=== PATIENT | female | born 1970 | race American Indian/Alaskan Native ===

== ENCOUNTER 2017-03-09 08:28 | Emergency (ER) | payer MEDICAID, OTHER ==
[2017-03-09] MEDS ORDERED: TORADOL IM ONE (10:23)
[2017-03-09] MEDS ORDERED: FLEXERIL PO ONE (10:23)
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
[2017-03-09 12:00] VITALS: BP 110/60
== END 2017-03-09 11:30 | disposition home or self-care (01) ==
LOC: ED 08:28
DX: M25.561 Pain in right knee (principal); V49.59XA Passenger injured in collision with other motor vehicles in traffic accident, initial encounter; Y93.9 Activity, unspecified; Y92.9 Unspecified place or not applicable; Y99.9 Unspecified external cause status
CPT/HCPCS: 96372; 99283; J1885

== ENCOUNTER 2018-01-23 19:38 | Emergency (ER) | payer SELFPAY ==
[2018-01-23 19:54] VITALS: BP 126/93
[2018-01-23 20:24] LABS: Basophils % (Auto) 0.5 % (0.0-1.8); Eosinophils # (Auto) 0.2 K/mm3 (0.0-0.4); Eosinophils % (Auto) 3.6 % (0.0-4.3); Hematocrit 38.1 % (30.3-42.9); Hemoglobin 12.2 gm/dl (10.1-14.3); Lymphocytes # (Auto) 1.8 K/mm3 (1.2-5.4); Lymphocytes % (Auto) 39.4 % (13.4-35.0); Mean Corpuscular HGB Conc 32 % (30-34); Mean Corpuscular Hemoglobin 27 pg (28-32); Mean Corpuscular Volume 84 fl (79-97); Monocytes # (Auto) 0.5 K/mm3 (0.0-0.8); Monocytes % (Auto) 9.7 % (0.0-7.3); Platelet Count 240 K/mm3 (140-440); Red Blood Count 4.55 M/mm3 (3.65-5.03); Red Cell Distribution Width 13.3 % (13.2-15.2)
[2018-01-23 20:26] LABS: Bilirubin,Urine NEG (Negative); Blood,Urine SM (Negative); Color,Urine Yellow (Yellow); Protein,Urine <15 mg/dL mg/dL (Negative); Urobilinogen,Urine < 2.0 mg/dL (<2.0)
[2018-01-23 20:37] LABS: Alanine Aminotransferase 10 units/L (7-56); Albumin 3.8 g/dL (3.9-5); BUN/Creatinine Ratio 16; Blood Urea Nitrogen 13 mg/dL (7-17); Calcium 8.2 mg/dL (8.4-10.2); Hemolysis Index 5; Lipase 20 units/L (13-60)
== END 2018-01-23 21:41 | disposition left against medical advice (07) ==
LOC: ED 19:38
DX: R10.2 Pelvic and perineal pain (principal); Z53.21 Procedure and treatment not carried out due to patient leaving prior to being seen by health care provider
CPT/HCPCS: 36415; 80053; 81001; 83690; 84703; 85025

== ENCOUNTER 2018-12-24 08:41 | Emergency (ER) | payer MEDICAID ==
[2018-12-24 09:38] LABS: Bacteria,Urine 1+ /HPF (Negative); Bilirubin,Urine NEG (Negative); Blood,Urine SM (Negative); Color,Urine Yellow (Yellow); Mucus,Urine FEW /HPF; Protein,Urine <15 mg/dL mg/dL (Negative); Urobilinogen,Urine < 2.0 mg/dL (<2.0)
[2018-12-24] MEDS ORDERED: MORPHINE IV ONE (10:29)
[2018-12-24] MEDS ORDERED: ZOFRAN IV ONE (10:29)
[2018-12-24 10:55] LABS: Basophils % (Auto) 0.4 % (0.0-1.8); Eosinophils # (Auto) 0.2 K/mm3 (0.0-0.4); Eosinophils % (Auto) 2.6 % (0.0-4.3); Hematocrit 40.8 % (30.3-42.9); Hemoglobin 13.4 gm/dl (10.1-14.3); Lymphocytes # (Auto) 1.3 K/mm3 (1.2-5.4); Lymphocytes % (Auto) 21.3 % (13.4-35.0); Mean Corpuscular HGB Conc 33 % (30-34); Mean Corpuscular Volume 84 fl (79-97); Monocytes # (Auto) 0.4 K/mm3 (0.0-0.8); Monocytes % (Auto) 6.9 % (0.0-7.3); Platelet Count 178 K/mm3 (140-440); Red Blood Count 4.85 M/mm3 (3.65-5.03); Red Cell Distribution Width 13.2 % (13.2-15.2)
--- NOTE | 2018-12-24 11:03 | Cat Scan Report ---
CT ABDOMEN PELVIS WITHOUT CONTRAST: HISTORY: Right lower quadrant abdominal pain. COMPARISON: none. TECHNIQUE: Helical CT in 1.25mm intervals without IV contrast. Sagittal and coronal reconstructions. FINDINGS: Lung bases: Normal heart size. The lung bases are adequately aerated, however, multiple small intraparenchymal cysts are noted in the lower lung zones. These cysts range from a few millimeters in diameter to 1.5 cm in diameter and had a thin well-defined wall. No pleural fluid collection or pneumothorax Liver: Normal. Biliary system: Normal. Pancreas: Normal. Spleen: Normal. Kidneys/ureters/bladder: Normal. Adrenal glands: Normal. Aorta: Normal. Intestines: There is moderate stool throughout the length of the colon. This exam is slightly limited without oral and IV contrast. There is no evidence for obstruction or focal inflammation. Appendix: I believe I see the appendix in the right side of the pelvis on images [id number], series 3. Low suspicion for acute appendicitis. Pelvic viscera: Normal. Ascites: None. Adenopathy: None. Musculoskeletal: Normal. IMPRESSION: No acute process is identified in the abdomen or pelvis. No clear explanation for right lower quadrant pain other than constipation. Multiple small cysts are identified at the lung bases. Considerations include lymphangiomyomatosis, tuberous sclerosis, eosinophilic granuloma, among other etiologies.
[2018-12-24 11:14] LABS: Alanine Aminotransferase 8 units/L (7-56); BUN/Creatinine Ratio 17; Blood Urea Nitrogen 10 mg/dL (7-17); Calcium 8.8 mg/dL (8.4-10.2); Hemolysis Index 7
--- NOTE | 2018-12-24 11:24 | Emergency Department Report ---
ED General Adult HPI - General Chief complaint: Abdominal Pain Stated complaint: ABD PAIN Time Seen by Provider: 12/24/18 09:58 Source: patient Mode of arrival: Ambulatory Limitations: No Limitations - History of Present Illness Initial comments: The patient presents to the emergency department with a chief complaint of diffuse abdominal pain and vaginal discharge to started 2 days ago after having intercourse. Patient also complains of some nausea but denies chest pain, status post, or headache. -: Gradual Severity scale (0 -10): 10 Quality: aching Consistency: constant Improves with: none Worsens with: none Associated Symptoms: denies other symptoms Treatments Prior to Arrival: none - Related Data Previous Rx's Medication Instructions Recorded Last Taken Type Cyclobenzaprine [Flexeril 10 MG 10 mg PO QHS #24 tablet 03/09/17 Unknown Rx TAB] Ibuprofen [Motrin] 800 mg PO Q8HR PRN #30 tablet 03/09/17 Unknown Rx metroNIDAZOLE [Flagyl TAB] 500 mg PO Q12HR #14 tab 12/24/18 Unknown Rx Allergies Allergy/AdvReac Type Severity Reaction Status Date / Time No Known Allergies Allergy Verified 12/24/18 08:42 ED Review of Systems ROS: Stated complaint: ABD PAIN Other details as noted in HPI Constitutional: denies: chills, fever Eyes: denies: eye pain, eye discharge, vision change ENT: denies: ear pain, throat pain Respiratory: denies: cough, shortness of breath, wheezing Cardiovascular: denies: chest pain, palpitations Endocrine: no symptoms reported Gastrointestinal: abdominal pain. denies: nausea, diarrhea Genitourinary: denies: urgency, dysuria, discharge Musculoskeletal: denies: back pain, joint swelling, arthralgia Skin: denies: rash, lesions Neurological: denies: headache, weakness, paresthesias Psychiatric: denies: anxiety, depression Hematological/Lymphatic: denies: easy bleeding, easy bruising ED Past Medical Hx - Past Medical History Previous Medical History?: Yes Additional medical history: Review smoker-chronic pelvic pain. PID - Surgical History Past Surgical History?: Yes Additional Surgical History: tubal ligation - Social History Smoking Status: Current Every Day Smoker - Medications Home Medications: Home Medications Medication Instructions Recorded Confirmed Last Taken Type Cyclobenzaprine [Flexeril 10 MG 10 mg PO QHS #24 tablet 03/09/17 Unknown Rx TAB] Ibuprofen [Motrin] 800 mg PO Q8HR PRN #30 tablet 03/09/17 Unknown Rx metroNIDAZOLE [Flagyl TAB] 500 mg PO Q12HR #14 tab 12/24/18 Unknown Rx ED Physical Exam - General Limitations: No Limitations General appearance: alert, in no apparent distress - Head Head exam: Present: atraumatic, normocephalic - Eye Eye exam: Present: normal appearance, PERRL, EOMI - ENT ENT exam: Present: mucous membranes moist - Neck Neck exam: Present: normal inspection - Respiratory Respiratory exam: Present: normal lung sounds bilaterally. Absent: respiratory distress, wheezes, rales, rhonchi - Cardiovascular Cardiovascular Exam: Present: regular rate, normal rhythm. Absent: systolic murmur, diastolic murmur, rubs, gallop - GI/Abdominal GI/Abdominal exam: Present: soft, tenderness (diffusely tender to palpation), normal bowel sounds. Absent: distended - Rectal Rectal exam: Present: deferred - External exam: Present: normal external exam, other ( exam chaperoned by nurse Carlos Damon) Speculum exam: Present: vaginal discharge, cervical discharge. Absent: vaginal bleeding, foreign body, tissue, laceration Bi-manual exam: Present: normal bi-manual exam. Absent: adnexal tenderness, adnexal mass - Extremities Exam Extremities exam: Present: normal inspection - Back Exam Back exam: Present: normal inspection - Neurological Exam Neurological exam: Present: alert, oriented X3, CN II-XII intact. Absent: motor sensory deficit - Psychiatric Psychiatric exam: Present: normal affect, normal mood - Skin Skin exam: Present: warm, dry, intact, normal color. Absent: rash ED Course Vital Signs 12/24/18 12/24/18 12/24/18 08:44 08:45 09:52 Temperature 97.4 F L Pulse Rate 91 H Respiratory 13 18 Rate Blood Pressure 104/75 O2 Sat by Pulse 98 Oximetry ED Medical Decision Making - Lab Data Result diagrams: 12/24/18 10:41 12/24/18 10:41 Lab Results 12/24/18 12/24/18 12/24/18 Range/Units 09:14 10:41 10:41 WBC 5.9 (4.5-11.0) K/mm3 RBC 4.85 (3.65-5.03) M/mm3 Hgb 13.4 (10.1-14.3) gm/dl Hct 40.8 (30.3-42.9) % MCV 84 (79-97) fl MCH 28 (28-32) pg MCHC 33 (30-34) % RDW 13.2 (13.2-15.2) % Plt Count 178 (140-440) K/mm3 Lymph % (Auto) 21.3 (13.4-35.0) % [place] % (Auto) 6.9 (0.0-7.3) % Eos % (Auto) 2.6 (0.0-4.3) % Baso % (Auto) 0.4 (0.0-1.8) % Lymph # 1.3 (1.2-5.4) K/mm3 Burnett # 0.4 (0.0-0.8) K/mm3 Eos # 0.2 (0.0-0.4) K/mm3 Baso # 0.0 (0.0-0.1) K/mm3 Seg Neutrophils % 68.8 (40.0-70.0) % Seg Neutrophils # 4.1 (1.8-7.7) K/mm3 Sodium 139 (137-145) mmol/L Potassium 4.2 (3.6-5.0) mmol/L Chloride 102.7 (98-107) mmol/L Carbon Dioxide 26 (22-30) mmol/L Anion Gap 15 mmol/L BUN 10 (7-17) mg/dL Creatinine 0.6 L (0.7-1.2) mg/dL Estimated GFR > 60 ml/min BUN/Creatinine Ratio 17 % Glucose 97 (65-100) mg/dL Calcium 8.8 (8.4-10.2) mg/dL Total Bilirubin 0.40 (0.1-1.2) mg/dL AST 13 (5-40) units/L ALT 8 (7-56) units/L Alkaline Phosphatase 53 (35-129) units/L Total Protein 6.8 (6.3-8.2) g/dL Albumin 4.0 (3.9-5) g/dL Albumin/Globulin Ratio 1.4 % Lipase 49 (13-60) units/L Urine Color Yellow (Yellow) Urine Turbidity Clear (Clear) Urine pH 5.0 (5.0-7.0) Ur Specific [place] 1.017 (1.003-1.030) Urine Protein <15 mg/dl (Negative) mg/dL Urine Glucose (UA) Neg (Negative) mg/dL Urine Ketones Neg (Negative) mg/dL Urine Blood Sm (Negative) Urine Nitrite Neg (Negative) Urine Bilirubin Neg (Negative) Urine Urobilinogen < 2.0 (<2.0) mg/dL Ur Leukocyte Esterase Neg (Negative) Urine WBC (Auto) 1.0 (0.0-6.0) /HPF Urine RBC (Auto) 5.0 (0.0-6.0) /HPF U Epithel Cells (Auto) 3.0 (0-13.0) /HPF Urine Bacteria (Auto) 1+ (Negative) /HPF Urine Mucus Few /HPF - Radiology Data Radiology results: report reviewed - Medical Decision Making Discussed CT results with patient and need for close follow-up Critical care attestation.: If time is entered above; I have spent that time in minutes in the direct care of this critically ill patient, excluding procedure time. ED Disposition Clinical Impression: Abdominal pain, Bacterial vaginosis, Vaginal discharge Disposition: DC-01 TO HOME OR SELFCARE Is pt being admited?: No Does the pt Need Aspirin: No Condition: Stable Instructions: Abdominal Pain (ED), Bacterial Vaginosis (ED) Additional Instructions: return if worse Prescriptions: metroNIDAZOLE [Flagyl TAB] 500 mg PO Q12HR #14 tab Referrals: JOSE STANLEY MD [Primary Care Provider] - 3-5 Days Forms: STI Treatment and Prevention
[2018-12-24] MEDS ORDERED: ZOFRAN ODT PO ONE (13:48)
[2018-12-24] MEDS ORDERED: ZITHROMAX PO ONE (13:48)
[2018-12-24] MEDS ORDERED: ROCEPHIN IM ONE (13:48)
[2018-12-24] MEDS ORDERED: XYLOCAINE 1% MPF 5 mL INFILTRATI ONE (13:48)
[2018-12-24 14:48] VITALS: BP 93/59
== END 2018-12-24 14:47 | disposition home or self-care (01) ==
LOC: ED 08:41
DX: N76.0 Acute vaginitis (principal); B96.89 Other specified bacterial agents as the cause of diseases classified elsewhere; R10.84 Generalized abdominal pain; F17.200 Nicotine dependence, unspecified, uncomplicated; Z98.51 Tubal ligation status; Z79.899 Other long term (current) drug therapy
CPT/HCPCS: 36415; 74176; 80053; 81001; 83690; 85025; 87210; 87591; 96372; 96374; 96375; 99285; J0696; J2270; J2405; Q0162

== ENCOUNTER 2019-01-20 11:18 | Emergency (ER) | payer MEDICAID ==
--- NOTE | 2019-01-20 11:31 | Emergency Department Report ---
Blank Doc - Documentation Documentation: This is a 48-year-old female that presents with pelvic pain and vaginal discha rge. Patient stated that she has been going to OBGYN and has been taking antibiotics with no relief. This initial assessment/diagnostic orders/clinical plan/treatment(s) is/are subject to change based on patient's health status, clinical progression and re- assessment by fellow clinical providers in the ED. Further treatment and workup at subsequent clinical providers discretion. Patient/guardians urged not to elope from the ED as their condition may be serious if not clinically assessed and managed. Initial orders include: 1- Patient sent to [facility] for further evaluation and treatment 2- wet prep/GC 3- UA
[2019-01-20 15:27] VITALS: BP 101/76
[2019-01-20 15:48] LABS: Basophils # (Auto) 0.1 K/mm3 (0.0-0.1); Basophils % (Auto) 1.1 % (0.0-1.8); Eosinophils # (Auto) 0.1 K/mm3 (0.0-0.4); Hematocrit 38.5 % (30.3-42.9); Hemoglobin 12.9 gm/dl (10.1-14.3); Lymphocytes # (Auto) 1.6 K/mm3 (1.2-5.4); Lymphocytes % (Auto) 34.7 % (13.4-35.0); Mean Corpuscular HGB Conc 34 % (30-34); Mean Corpuscular Volume 85 fl (79-97); Monocytes # (Auto) 0.4 K/mm3 (0.0-0.8); Monocytes % (Auto) 8.4 % (0.0-7.3); Platelet Count 202 K/mm3 (140-440); Red Blood Count 4.54 M/mm3 (3.65-5.03); Red Cell Distribution Width 13.6 % (13.2-15.2)
[2019-01-20 16:13] LABS: Alanine Aminotransferase 11 units/L (7-56); BUN/Creatinine Ratio 17; Blood Urea Nitrogen 12 mg/dL (7-17); Calcium 8.8 mg/dL (8.4-10.2); Hemolysis Index 16
[2019-01-20] MEDS ORDERED: ZOFRAN ODT PO ONE (16:32)
[2019-01-20] MEDS ORDERED: NORCO 10/325 PO ONE (16:32)
[2019-01-20] MEDS ORDERED: ROCEPHIN IM ONE (16:32)
[2019-01-20] MEDS ORDERED: XYLOCAINE 1% MPF 5 mL INFILTRATI ONE (16:32)
[2019-01-20] MEDS ORDERED: ZITHROMAX PO ONE (16:33)
--- NOTE | 2019-01-20 17:22 | Emergency Department Report ---
<TJ BLAIR - Last Filed: 01/21/19 04:56> ED General Adult HPI - General Chief complaint: Abdominal Pain Stated complaint: VAGINAL PAIN Time Seen by Provider: 01/20/19 11:28 - Related Data Previous Rx's Medication Instructions Recorded Last Taken Type Cyclobenzaprine [Flexeril 10 MG 10 mg PO QHS #24 tablet 03/09/17 Unknown Rx TAB] Ibuprofen [Motrin 800 MG tab] 800 mg PO Q8HR PRN #30 tablet 03/09/17 Unknown Rx traMADol [Ultram 50 MG tab] 50 mg PO Q6HR PRN #20 tablet 12/24/18 Unknown Rx Acetaminophen/Codeine [Tylenol 1 tab PO Q6H PRN #10 tab 01/20/19 Unknown Rx /Codeine # 3 tab] Allergies Allergy/AdvReac Type Severity Reaction Status Date / Time No Known Allergies Allergy Verified 12/24/18 08:42 ED Past Medical Hx - Medications Home Medications: Home Medications Medication Instructions Recorded Confirmed Last Taken Type Cyclobenzaprine [Flexeril 10 MG 10 mg PO QHS #24 tablet 03/09/17 Unknown Rx TAB] Ibuprofen [Motrin 800 MG tab] 800 mg PO Q8HR PRN #30 tablet 03/09/17 Unknown Rx traMADol [Ultram 50 MG tab] 50 mg PO Q6HR PRN #20 tablet 12/24/18 Unknown Rx Acetaminophen/Codeine [Tylenol 1 tab PO Q6H PRN #10 tab 01/20/19 Unknown Rx /Codeine # 3 tab] ED Physical Exam - External exam: Present: other ED Medical Decision Making - Lab Data Result diagrams: 01/20/19 15:28 01/20/19 15:28 Lab Results 01/20/19 01/20/19 01/20/19 Range/Units 15:25 15:28 15:28 WBC 4.5 (4.5-11.0) K/mm3 RBC 4.54 (3.65-5.03) M/mm3 Hgb 12.9 (10.1-14.3) gm/dl Hct 38.5 (30.3-42.9) % MCV 85 (79-97) fl MCH 29 (28-32) pg MCHC 34 (30-34) % RDW 13.6 (13.2-15.2) % Plt Count 202 (140-440) K/mm3 Lymph % (Auto) 34.7 (13.4-35.0) % [place] % (Auto) 8.4 H (0.0-7.3) % Eos % (Auto) 3.0 (0.0-4.3) % Baso % (Auto) 1.1 (0.0-1.8) % Lymph # 1.6 (1.2-5.4) K/mm3 Swain # 0.4 (0.0-0.8) K/mm3 Eos # 0.1 (0.0-0.4) K/mm3 Baso # 0.1 (0.0-0.1) K/mm3 Seg Neutrophils % 52.8 (40.0-70.0) % Seg Neutrophils # 2.4 (1.8-7.7) K/mm3 Sodium 139 (137-145) mmol/L Potassium 3.7 (3.6-5.0) mmol/L Chloride 102.0 (98-107) mmol/L Carbon Dioxide 28 (22-30) mmol/L Anion Gap 13 mmol/L BUN 12 (7-17) mg/dL Creatinine 0.7 (0.7-1.2) mg/dL Estimated GFR > 60 ml/min BUN/Creatinine Ratio 17 % Glucose 52 L (65-100) mg/dL Calcium 8.8 (8.4-10.2) mg/dL Total Bilirubin 0.30 (0.1-1.2) mg/dL AST 17 (5-40) units/L ALT 11 (7-56) units/L Alkaline Phosphatase 55 (35-129) units/L Total Protein 6.3 (6.3-8.2) g/dL Albumin 4.0 (3.9-5) g/dL Albumin/Globulin Ratio 1.7 % Urine Color Yellow (Yellow) Urine Turbidity Clear (Clear) Urine pH 6.0 (5.0-7.0) Ur Specific [place] 1.010 (1.003-1.030) Urine Protein <15 mg/dl (Negative) mg/dL Urine Glucose (UA) Neg (Negative) mg/dL Urine Ketones Neg (Negative) mg/dL Urine Blood Mod (Negative) Urine Nitrite Neg (Negative) Urine Bilirubin Neg (Negative) Urine Urobilinogen < 2.0 (<2.0) mg/dL Ur Leukocyte Esterase Sm (Negative) Urine WBC (Auto) 3.0 (0.0-6.0) /HPF Urine RBC (Auto) 4.0 (0.0-6.0) /HPF U Epithel Cells (Auto) 1.0 (0-13.0) /HPF Urine Mucus Few /HPF Urine HCG, Qual Negative (Negative) Vital Signs 01/20/19 01/20/19 01/20/19 11:33 15:25 16:40 Temperature 98.4 F 98.2 F Pulse Rate 91 H 88 Respiratory 16 17 18 Rate Blood Pressure 96/72 Blood Pressure 101/76 [Right] O2 Sat by Pulse 100 98 Oximetry 01/20/19 17:25 Temperature Pulse Rate Respiratory 18 Rate Blood Pressure Blood Pressure [Right] O2 Sat by Pulse Oximetry - Radiology Data Radiology results: report reviewed PROCEDURE: US PELVIC COMPLETE TECHNIQUE: Real-time sonography was performed of the pelvis endovaginally and images are submitted for interpretation HISTORY: Tubo-ovarian abscess COMPARISONS: None FINDINGS: The uterus appears normal measuring 9.3 x 5.8 x 7.1 cm. The endometrial stripe appears normal measuring 8 mm. The right ovary appears normal measuring 2.6 x 1.6 x 3.5 cm. The left ovary appears normal measuring 2.9 x 1.8 x 2.3 cm. Color Doppler evaluation of the ovaries shows flow bilaterally. There is no free pelvic fluid. There are no abnormal adnexal lesions. IMPRESSION: Normal pelvic ultrasound This document is electronically signed by Desi Arnold MD., January 20 2019 07:41:33 PM ET - Medical Decision Making s/o from Dr. Solis labs with mildly low glucose advised pt to drink a soda/juice, rest of the labs WNL, wet prep is normal, pelvic US with no acute process, pt swabbed and given tx for G/C, advised pt to check back with medical records in one week for results, discussed US results with pt and advised pt to follow up with her [employer] for further evaluation and management and to rule out endometriosis or any other [employer]IL[employer] causes for pelvic pain. Will also have pt see a PCP in the next 2- 3 days. Pt states she has been taking 800 mg ibuprofen and has not helped with the pain, will give pt short course of tylenol 3. Advised pt to return to the ED for any new or worsening symptoms. ED Disposition Clinical Impression: Pelvic pain Disposition: DC-01 TO HOME OR SELFCARE Is pt being admited?: No Does the pt Need Aspirin: No Condition: Stable Instructions: Chronic Pelvic Pain in Women (ED) Additional Instructions: please follow up with your [employer]TER in the next 2-3 days to discuss endometriosis or other diagnosis. Follow up with your primary care doctor in the next 2-3 days. Return to the emergency room for any new or worsening symptoms. May use tylenol with codeine for severe pain and ibuprofen for moderate pain. Prescriptions: Acetaminophen/Codeine [Tylenol /Codeine # 3 tab] 1 tab PO Q6H PRN #10 tab PRN Reason: Pain , Severe (7-10) Referrals: YOSSI TELLO MD [Primary Care Provider] - 2-3 Days [facility] [Provider Group] - 2-3 Days Forms: Work/School Release Form(ED) Time of Disposition: 20:41 Print Language: BERMUDIAN <JANY SOLIS - Last Filed: 01/21/19 09:20> ED General Adult HPI - General Source: patient Mode of arrival: Ambulatory Limitations: No Limitations - History of Present Illness Initial comments: Patient presents to emergency department with chief complaint of pelvic pain with vaginal discharge for the last 2-3 weeks. Patient also complains of lower abdominal pain. Patient recently finished a course of antibiotics for STD exposure. -: Gradual Location: abdomen Severity scale (0 -10): 8 Quality: aching Consistency: constant Improves with: none Worsens with: none Associated Symptoms: denies other symptoms Treatments Prior to Arrival: none ED Review of Systems ROS: Stated complaint: VAGINAL PAIN Other details as noted in HPI Constitutional: denies: chills, fever Eyes: denies: eye pain, eye discharge, vision change ENT: denies: ear pain, throat pain Respiratory: denies: cough, shortness of breath, wheezing Cardiovascular: denies: chest pain, palpitations Endocrine: no symptoms reported Gastrointestinal: denies: abdominal pain, nausea, diarrhea Genitourinary: discharge. denies: urgency, dysuria Musculoskeletal: denies: back pain, joint swelling, arthralgia Skin: denies: rash, lesions Neurological: denies: headache, weakness, paresthesias Psychiatric: denies: anxiety, depression Hematological/Lymphatic: denies: easy bleeding, easy bruising ED Past Medical Hx - Past Medical History Previous Medical History?: Yes Additional medical history: Review smoker-chronic pelvic pain. PID - Surgical History Past Surgical History?: Yes Additional Surgical History: tubal ligation - Social History Smoking Status: Never Smoker Substance Use Type: None ED Physical Exam - General Limitations: No Limitations General appearance: alert, in no apparent distress - Head Head exam: Present: atraumatic, normocephalic - Eye Eye exam: Present: normal appearance, PERRL, EOMI - ENT ENT exam: Present: mucous membranes moist - Neck Neck exam: Present: normal inspection - Respiratory Respiratory exam: Present: normal lung sounds bilaterally. Absent: respiratory distress, wheezes, rales, rhonchi - Cardiovascular Cardiovascular Exam: Present: regular rate, normal rhythm. Absent: systolic murmur, diastolic murmur, rubs, gallop - GI/Abdominal GI/Abdominal exam: Present: soft, normal bowel sounds. Absent: distended, tenderness - External exam: Present: normal external exam, other (chaperoned by paramedics Steel) Speculum exam: Present: vaginal discharge Bi-manual exam: Present: cervical motion tendernes - Back Exam Back exam: Present: normal inspection - Neurological Exam Neurological exam: Present: alert, oriented X3, CN II-XII intact. Absent: motor sensory deficit - Psychiatric Psychiatric exam: Present: normal affect, normal mood - Skin Skin exam: Present: warm, dry, intact, normal color. Absent: rash ED Course Vital Signs 01/20/19 01/20/19 01/20/19 11:33 15:25 16:40 Temperature 98.4 F 98.2 F Pulse Rate 91 H 88 Respiratory 16 17 18 Rate Blood Pressure 96/72 Blood Pressure 101/76 [Right] O2 Sat by Pulse 100 98 Oximetry 01/20/19 17:25 Temperature Pulse Rate Respiratory 18 Rate Blood Pressure Blood Pressure [Right] O2 Sat by Pulse Oximetry ED Medical Decision Making - Lab Data Result diagrams: 01/20/19 15:28 01/20/19 15:28 - Radiology Data Radiology results: report reviewed Critical care attestation.: If time is entered above; I have spent that time in minutes in the direct care of this critically ill patient, excluding procedure time.
[2019-01-20 19:08] LABS: Bilirubin,Urine NEG (Negative); Blood,Urine MOD (Negative); Color,Urine Yellow (Yellow); Mucus,Urine FEW /HPF; Protein,Urine <15 mg/dL mg/dL (Negative); Urobilinogen,Urine < 2.0 mg/dL (<2.0)
[2019-01-20 19:10] LABS: HCG Qualitative,Urine Negative (Negative)
--- NOTE | 2019-01-20 19:43 | Ultrasound Report ---
PROCEDURE: US PELVIC COMPLETE TECHNIQUE: Real-time sonography was performed of the pelvis endovaginally and images are submitted f or interpretation HISTORY: Tubo-ovarian abscess COMPARISONS: None FINDINGS: The uterus appears normal measuring 9.3 x 5.8 x 7.1 cm. The endometrial stripe appears normal measuri ng 8 mm. The right ovary appears normal measuring 2.6 x 1.6 x 3.5 cm. The left ovary appears normal measuring 2.9 x 1.8 x 2.3 cm. Color Doppler evaluation of the ovaries shows flow bilaterally. There is no free pelvic fluid. There are no abnormal adnexal lesions. IMPRESSION: Normal pelvic ultrasound This document is electronically signed by Desi Arnold MD., January 20 2019 07:41:33 PM ET
--- NOTE | 2019-01-20 19:43 | Ultrasound Report ---
PROCEDURE: US PELVIC COMPLETE TECHNIQUE: Real-time sonography was performed of the pelvis transabdominally and images are submitte d for interpretation HISTORY: Tubo-ovarian abscess COMPARISONS: None FINDINGS: The uterus appears normal measuring 9.3 x 5.8 x 7.1 cm. The endometrial stripe appears normal measuri ng 8 mm. The right ovary appears normal measuring 2.6 x 1.6 x 3.5 cm. The left ovary appears normal measuring 2.9 x 1.8 x 2.3 cm. Color Doppler evaluation of the ovaries shows flow bilaterally. There is no free pelvic fluid. There are no abnormal adnexal lesions IMPRESSION: Normal pelvic ultrasound This document is electronically signed by Desi Arnold MD., January 20 2019 07:40:50 PM ET
== END 2019-01-20 20:46 | disposition home or self-care (01) ==
LOC: ED 11:18
DX: R10.2 Pelvic and perineal pain (principal); N89.8 Other specified noninflammatory disorders of vagina; R10.30 Lower abdominal pain, unspecified; Z98.51 Tubal ligation status
CPT/HCPCS: 36415; 76830; 76856; 80053; 81001; 81025; 85025; 87210; 87591; 96372; 99284; J0696; Q0162

== ENCOUNTER 2019-02-11 08:37 | Emergency (ER) | payer MEDICAID ==
[2019-02-11 09:18] LABS: Bilirubin,Urine NEG (Negative); Blood,Urine SM (Negative); Color,Urine Yellow (Yellow); Mucus,Urine 1+ /HPF; Protein,Urine <15 mg/dL mg/dL (Negative); Urobilinogen,Urine < 2.0 mg/dL (<2.0)
--- NOTE | 2019-02-11 10:04 | Emergency Department Report ---
ED Dysuria HPI - HPI Chief Complaint: Urogenital-Female Stated Complaint: PELVIC PAIN Time Seen by Provider: 02/11/19 09:59 Location of Discomfort: Other Severity: Mild Symptoms: Dysuria: No, Frequency: No, Suprapubic Pain: No, Flank Pain: No, Fever: No, Hematuria: No, Abdominal Pain: No, Previous UTI's: No Other History: Patient has been seen here numerous times in the past for the same symptoms. She's had ultrasounds and CT scans. She has had numerous urinalysis and STD workups. Patient has been referred to [facility] but states that she has a scheduled biopsy but she is out of her pain medicine so she came to the ER. ED Review of Systems ROS: Stated complaint: PELVIC PAIN Other details as noted in HPI Comment: All other systems reviewed and negative ED Past Medical Hx - Past Medical History Previous Medical History?: Yes Additional medical history: Review smoker-chronic pelvic pain. PID - Surgical History Past Surgical History?: Yes Additional Surgical History: tubal ligation. D&C x3 - Social History Smoking Status: Current Every Day Smoker Substance Use Type: None - Medications Home Medications: Home Medications Medication Instructions Recorded Confirmed Last Taken Type Cyclobenzaprine [Flexeril 10 MG 10 mg PO QHS #24 tablet 03/09/17 Unknown Rx TAB] Ibuprofen [Motrin 800 MG tab] 800 mg PO Q8HR PRN #30 tablet 03/09/17 Unknown Rx traMADol [Ultram 50 MG tab] 50 mg PO Q6HR PRN #20 tablet 12/24/18 Unknown Rx Acetaminophen/Codeine [Tylenol 1 tab PO Q6H PRN #10 tab 01/20/19 Unknown Rx /Codeine # 3 tab] Dysuria Exam - Exam General: Vital signs noted. No distress. Alert and acting appropriately. Exam: Yes Moist Mucous Membranes, No CVA Tenderness, No Abdominal Tenderness, No Rigidity or Guarding Labs: Lab Results 02/11/19 Range/Units 08:58 Urine Color Yellow (Yellow) Urine Turbidity Clear (Clear) Urine pH 6.0 (5.0-7.0) Ur Specific [place] 1.015 (1.003-1.030) Urine Protein <15 mg/dl (Negative) mg/dL Urine Glucose (UA) Neg (Negative) mg/dL Urine Ketones Neg (Negative) mg/dL Urine Blood Sm (Negative) Urine Nitrite Neg (Negative) Urine Bilirubin Neg (Negative) Urine Urobilinogen < 2.0 (<2.0) mg/dL Ur Leukocyte Esterase Neg (Negative) Urine WBC (Auto) 1.0 (0.0-6.0) /HPF Urine RBC (Auto) 3.0 (0.0-6.0) /HPF U Epithel Cells (Auto) 2.0 (0-13.0) /HPF Urine Mucus 1+ /HPF ED Course Vital Signs 02/11/19 08:47 Temperature 98.3 F Pulse Rate 96 H Respiratory 18 Rate Blood Pressure 97/68 [Right] O2 Sat by Pulse 97 Oximetry ED Medical Decision Making - Medical Decision Making Review of the EMR, long discussion with the patient. I explained to her that the emergency room is not which she needs for her current issues. She has a pending uterine biopsy. She has had an extensive ER workup on numerous occasions. I also informed her that we could not keep prescribing her tramadol [place] for her pain. She is going to walk over to her MANAGER DRILLING's office to see if her uterine biopsy could be worked in sooner. Patient seems to be overly concerned about this issue. I'm not sure she was not educated prior ORIF she just is fearful of potentially a cancer diagnosis. We had a long discussion she's been around a verbalized concerns. And she will go see her MANAGER DRILL[facility] now. Patient being discharged from the ER with follow-up arrangements. Critical care attestation.: If time is entered above; I have spent that time in minutes in the direct care of this critically ill patient, excluding procedure time. ED Disposition Clinical Impression: Pelvic pain Disposition: TO HOME OR SELFCARE Is pt being admited?: No Does the pt Need Aspirin: No Condition: Stable Additional Instructions: ALL STD TEST NORMAL ULTRASOUND NORMAL CT NORMAL YOU NEED TO SEE OBGYN TO EVALUATE THE CAUSE OF THIS PAIN NO ANTIBIOTICS ARE INDICATED MOTRIN OR TYLENOL CAN BE USED FOR PAIN Referrals: SIMONA PEDERSEN [Other] - 3-5 Days SIMONA MCLAUGHLIN MD [Staff Physician] - 3-5 Days Time of Disposition: 10:03
[2019-02-11 10:30] VITALS: BP 100/71
== END 2019-02-11 10:29 | disposition home or self-care (01) ==
LOC: ED 08:37
DX: R10.2 Pelvic and perineal pain (principal); Z98.51 Tubal ligation status; F17.200 Nicotine dependence, unspecified, uncomplicated
CPT/HCPCS: 81001; 99282

== ENCOUNTER 2020-01-30 11:39 | Emergency (ER) | payer MEDICAID ==
[2020-01-30] MEDS ORDERED: traMADol 50 MG TAB PO ONE (12:43)
[2020-01-30 13:05] LABS: HCG Qualitative,Urine Negative (Negative)
[2020-01-30 13:06] LABS: Bilirubin,Urine NEG (Negative); Blood,Urine SM (Negative); Color,Urine Straw (Yellow); Protein,Urine <15 mg/dL mg/dL (Negative); Urobilinogen,Urine < 2.0 mg/dL (<2.0); WBC,Urine < 1.0 /HPF (0.0-6.0)
[2020-01-30] MEDS ORDERED: AZITHROMYCIN 250 MG TAB PO ONE (13:23)
[2020-01-30] MEDS ORDERED: LIDOCAINE-MPF (1%) 10 MG/1 ML VIAL 5 ML INFILTRATI ONE (13:23)
--- NOTE | 2020-01-30 13:23 | Emergency Department Report ---
ED Female HPI - General Chief complaint: Abdominal Pain Stated complaint: LOWER ABD PAIN Time Seen by Provider: 01/30/20 12:16 Source: patient Mode of arrival: Ambulatory Limitations: No Limitations - History of Present Illness Initial comments: This is a 49-year-old female presents the ED complaining of suprapubic pain with mild no odor vaginal discharge that began 2 days ago after her cycle ended. Patient denies dysuria, urinary frequency, fever, chills, nausea vomiting or diarrhea. Patient states that she has one partner but thinks she might have some vaginal irritation going on. She denies any vaginal lesions, vaginal pain. Patient states pain is localized to her mid pubic pelvis region. MD Complaint: vaginal discharge, pelvic pain Location: suprapubic Radiation: non-radiating Severity: mild Severity scale (0 -10): 5 Improves with: none Worsens with: none Are you Now?: No - Related Data Previous Rx's Medication Instructions Recorded Last Taken Type Cyclobenzaprine [Flexeril 10 MG 10 mg PO QHS #24 tablet 03/09/17 Unknown Rx TAB] traMADoL [Ultram 50 MG tab] 50 mg PO Q6HR PRN #20 tablet 12/24/18 Unknown Rx Acetaminophen/Codeine [Tylenol 1 tab PO Q6H PRN #10 tab 01/20/19 Unknown Rx /Codeine # 3 tab] Fluconazole [Diflucan TAB] 150 mg PO ONCE #1 tablet 01/30/20 Unknown Rx Ibuprofen [Motrin 800 MG tab] 800 mg PO Q8HR PRN #30 tablet 01/30/20 Unknown Rx Allergies Allergy/AdvReac Type Severity Reaction Status Date / Time No Known Allergies Allergy Verified 01/30/20 11:45 ED Review of Systems ROS: Stated complaint: LOWER ABD PAIN Other details as noted in HPI Comment: All other systems reviewed and negative ED Past Medical Hx - Past Medical History Additional medical history: Review smoker-chronic pelvic pain. PID - Surgical History Additional Surgical History: tubal ligation. D&C x3 - Social History Smoking Status: Never Smoker Substance Use Type: None - Medications Home Medications: Home Medications Medication Instructions Recorded Confirmed Last Taken Type Cyclobenzaprine [Flexeril 10 MG 10 mg PO QHS #24 tablet 03/09/17 Unknown Rx TAB] traMADoL [Ultram 50 MG tab] 50 mg PO Q6HR PRN #20 tablet 12/24/18 Unknown Rx Acetaminophen/Codeine [Tylenol 1 tab PO Q6H PRN #10 tab 01/20/19 Unknown Rx /Codeine # 3 tab] Fluconazole [Diflucan TAB] 150 mg PO ONCE #1 tablet 01/30/20 Unknown Rx Ibuprofen [Motrin 800 MG tab] 800 mg PO Q8HR PRN #30 tablet 01/30/20 Unknown Rx ED Physical Exam - General Limitations: No Limitations General appearance: alert, in no apparent distress - Head Head exam: Present: atraumatic, normocephalic - Eye Eye exam: Present: normal appearance - ENT ENT exam: Present: mucous membranes moist - Neck Neck exam: Present: normal inspection - Respiratory Respiratory exam: Present: normal lung sounds bilaterally. Absent: respiratory distress - Cardiovascular Cardiovascular Exam: Present: regular rate, normal rhythm. Absent: systolic murmur, diastolic murmur, rubs, gallop - GI/Abdominal GI/Abdominal exam: Present: soft, normal bowel sounds. Absent: distended, tenderness, guarding, rebound - External exam: Present: normal external exam. Absent: lesions, bleeding Speculum exam: Present: vaginal discharge (mild,yellowish,clear, no odor, no lesions). Absent: cervical discharge, vaginal bleeding, foreign body Bi-manual exam: Present: normal bi-manual exam. Absent: cervical motion tendernes - Extremities Exam Extremities exam: Present: normal inspection - Back Exam Back exam: Present: normal inspection - Neurological Exam Neurological exam: Present: alert, oriented X3 - Psychiatric Psychiatric exam: Present: normal affect, normal mood - Skin Skin exam: Present: warm, dry, intact, normal color. Absent: rash ED Course Vital Signs 01/30/20 01/30/20 01/30/20 11:45 12:49 15:09 Temperature 97.9 F 98.9 F Pulse Rate 75 80 Respiratory 20 16 16 Rate Blood Pressure 101/67 Blood Pressure 120/70 [Left] O2 Sat by Pulse 97 Oximetry ED Medical Decision Making - Lab Data Laboratory Last Values Urine Color Straw (Yellow) 01/30/20 12:57 Urine Turbidity Clear (Clear) 01/30/20 12:57 Urine pH 6.0 (5.0-7.0) 01/30/20 12:57 Ur Specific [place] 1.014 (1.003-1.030) 01/30/20 12:57 Urine Protein <15 mg/dl mg/dL (Negative) 01/30/20 12:57 Urine Glucose (UA) Neg mg/dL (Negative) 01/30/20 12:57 Urine Ketones Neg mg/dL (Negative) 01/30/20 12:57 Urine Blood Sm (Negative) 01/30/20 12:57 Urine Nitrite Neg (Negative) 01/30/20 12:57 Ur Reducing Substances Not Reportable 01/30/20 12:57 Urine Bilirubin Neg (Negative) 01/30/20 12:57 Urine Ictotest Not Reportable 01/30/20 12:57 Urine Urobilinogen < 2.0 mg/dL (<2.0) 01/30/20 12:57 Ur Leukocyte Esterase Neg (Negative) 01/30/20 12:57 Urine WBC (Auto) < 1.0 /HPF (0.0-6.0) 01/30/20 12:57 Urine RBC (Auto) 4.0 /HPF (0.0-6.0) 01/30/20 12:57 U Epithel Cells (Auto) 4.0 /HPF (0-13.0) 01/30/20 12:57 Urine HCG, Qual Negative (Negative) 01/30/20 12:57 - Medical Decision Making This 49-year-old female who presents the ED with pelvic pain. Urinalysis and urine test negative. Patient treated prophylaxis for STD. Discussed with patient to follow-up with health department for STD screening. Discussed results with the patient. Patient was in no acute or respiratory distress. She understand instructions and states will follow-up. Critical care attestation.: If time is entered above; I have spent that time in minutes in the direct care of this critically ill patient, excluding procedure time. ED Disposition Clinical Impression: Vaginitis, Possible exposure to STD Disposition: DC-01 TO HOME OR SELFCARE Is pt being admited?: No Does the pt Need Aspirin: No Condition: Stable Instructions: Sexually Transmitted Diseases (ED), Safe Sex (ED), Vaginitis (ED), Abdominal Pain (ED) Additional Instructions: Make sure to follow up with the primary care physician as discussed. Take all your medications as you've been prescribed. If you have any worsening symptoms or develop new symptoms please return to ED immediately. Prescriptions: Fluconazole [Diflucan TAB] 150 mg PO ONCE #1 tablet Ibuprofen [Motrin 800 MG tab] 800 mg PO Q8HR PRN #30 tablet PRN Reason: Pain Referrals: SIMONA PEDERSEN [Other] - 3-5 Days [facility] [Outside] - 3-[address] [facility] [Outside] - 3-[address] [facility] [Outside] - 3-5 Days Forms: Accompanied Note, Work/School Release Form(ED) Time of Disposition: 14:15
[2020-01-30 15:11] VITALS: BP 120/70
== END 2020-01-30 14:40 | disposition home or self-care (01) ==
LOC: ED 11:39
DX: N76.0 Acute vaginitis (principal); Z20.2 Contact with and (suspected) exposure to infections with a predominantly sexual mode of transmission; Z98.51 Tubal ligation status; Z79.899 Other long term (current) drug therapy
CPT/HCPCS: 81001; 81025; 96372; 99284; J0696

== ENCOUNTER 2020-12-02 10:59 | Emergency (ER) | payer OTHER, MEDICAID ==
[2020-12-02 11:40] VITALS: BP 93/66
[2020-12-02 12:02] LABS: Basophils % (Auto) 0.9 % (0.0-1.8); Eosinophils # (Auto) 0.1 K/mm3 (0.0-0.4); Eosinophils % (Auto) 2.2 % (0.0-4.3); Hematocrit 40.3 % (30.3-42.9); Hemoglobin 13.3 gm/dl (10.1-14.3); Lymphocytes # (Auto) 1.6 K/mm3 (1.2-5.4); Lymphocytes % (Auto) 30.8 % (13.4-35.0); Mean Corpuscular HGB Conc 33 % (30-34); Mean Corpuscular Volume 85 fl (79-97); Monocytes # (Auto) 0.5 K/mm3 (0.0-0.8); Platelet Count 241 K/mm3 (140-440); Red Blood Count 4.72 M/mm3 (3.65-5.03); Red Cell Distribution Width 13.4 % (13.2-15.2)
--- NOTE | 2020-12-02 12:04 | Event Note ---
ED Screening Note Date of service: 12/02/20 Time: 12:03 ED Screening Note: 50-year-old female presenting complaining of right-sided lower abdominal pelvic pain x2 to 3 days. Patient states that she started her cycle yesterday and is currently on her cycle but prior to that had some vaginal discharge. Patient states pain starts in her right pelvic and radiating down to her thigh. Very mild tender to palpation in the right pelvic region, This initial assessment/diagnostic orders/clinical plan/treatment(s) is/are subject to change based on patients health status, clinical progression and re- assessment by fellow clinical providers in the ED. Further treatment and workup at subsequent clinical providers discretion. Patient/guardian urged not to elope from the ED as their condition may be serious if not clinically assessed and managed. Initial orders include: Labs, urinalysis, CT?
[2020-12-02 12:06] LABS: Bacteria,Urine 1+ /HPF (Negative); Bilirubin,Urine NEG (Negative); Blood,Urine LG (Negative); Color,Urine Yellow (Yellow); Mucus,Urine 3+ /HPF
[2020-12-02 12:25] LABS: Alanine Aminotransferase 6 units/L (7-56); Albumin 4.2 g/dL (3.9-5); BUN/Creatinine Ratio 20; Blood Urea Nitrogen 18 mg/dL (7-17); Hemolysis Index 7
--- NOTE | 2020-12-02 16:16 | Emergency Department Report ---
ED General Adult HPI - General Chief complaint: Abdominal Pain Stated complaint: ABD PAIN/RT HAND PAIN X 1 WEEK PUI?: No Time Seen by Provider: 12/02/20 15:49 Source: patient Mode of arrival: Ambulatory Limitations: No Limitations - History of Present Illness Initial comments: CC: I have chronic pelvic pain HPI: This is a 50 yo female with hx of chronic pelvic pain who presents wtih vaginal discharge, hand pain and request from time off work. She has had several years of sharp twitching type pain in right lower quadrant radiating to pelvis. She has recurrent vaginal discharge after menses. She injured her right hand with car door several months ago. The knuckle of her right index finger seemed to remain swollen months later. Patient missed work for the past 4 days. She needs a note to return to work on Sunday. -: Gradual, year(s) (several years of pelvic pain 2 months of right hand pain, several months of pelvic pain) - Related Data Previous Rx's Medication Instructions Recorded Last Taken Type Cyclobenzaprine [Flexeril 10 MG 10 mg PO QHS #24 tablet 03/09/17 Unknown Rx TAB] traMADoL [Ultram 50 MG tab] 50 mg PO Q6HR PRN #20 tablet 12/24/18 Unknown Rx Acetaminophen/Codeine [Tylenol 1 tab PO Q6H PRN #10 tab 01/20/19 Unknown Rx /Codeine # 3 tab] Fluconazole (Nf) [Diflucan TAB] 150 mg PO ONCE #1 tablet 01/30/20 Unknown Rx Ibuprofen [Motrin 800 MG tab] 800 mg PO Q8HR PRN #30 tablet 01/30/20 Unknown Rx Fluconazole [Diflucan TAB] 200 mg PO QDAY #1 tablet 05/13/20 Unknown Rx Fluconazole [Diflucan TAB] 200 mg PO ONCE #1 tablet 12/02/20 Unknown Rx metroNIDAZOLE [Flagyl TAB] 500 mg PO Q12HR 7 Days #14 tab 12/02/20 Unknown Rx Allergies Allergy/AdvReac Type Severity Reaction Status Date / Time No Known Allergies Allergy Verified 05/13/20 11:01 ED Review of Systems ROS: Stated complaint: ABD PAIN/RT HAND PAIN X 1 WEEK Other details as noted in HPI Comment: All other systems reviewed and negative Constitutional: denies: fever, malaise Respiratory: denies: cough, shortness of breath Gastrointestinal: abdominal pain. denies: nausea, vomiting, diarrhea Musculoskeletal: denies: back pain Skin: denies: rash, lesions ED Past Medical Hx - Past Medical History Previous Medical History?: Yes Additional medical history: Review smoker-chronic pelvic pain. PID - Surgical History Past Surgical History?: Yes Additional Surgical History: tubal ligation. D&C x3 - Social History Smoking Status: Current Every Day Smoker - Medications Home Medications: Home Medications Medication Instructions Recorded Confirmed Last Taken Type Cyclobenzaprine [Flexeril 10 MG 10 mg PO QHS #24 tablet 03/09/17 Unknown Rx TAB] traMADoL [Ultram 50 MG tab] 50 mg PO Q6HR PRN #20 tablet 12/24/18 Unknown Rx Acetaminophen/Codeine [Tylenol 1 tab PO Q6H PRN #10 tab 01/20/19 Unknown Rx /Codeine # 3 tab] Fluconazole (Nf) [Diflucan TAB] 150 mg PO ONCE #1 tablet 01/30/20 Unknown Rx Ibuprofen [Motrin 800 MG tab] 800 mg PO Q8HR PRN #30 tablet 01/30/20 Unknown Rx Fluconazole [Diflucan TAB] 200 mg PO QDAY #1 tablet 05/13/20 Unknown Rx Fluconazole [Diflucan TAB] 200 mg PO ONCE #1 tablet 12/02/20 Unknown Rx metroNIDAZOLE [Flagyl TAB] 500 mg PO Q12HR 7 Days #14 tab 12/02/20 Unknown Rx ED Physical Exam - General Limitations: No Limitations General appearance: alert, in no apparent distress, other (appears well, comfortable) - Head Head exam: Present: atraumatic, normocephalic - Eye Eye exam: Present: normal appearance - ENT ENT exam: Present: mucous membranes moist - Neck Neck exam: Present: normal inspection, full ROM - Respiratory Respiratory exam: Present: normal lung sounds bilaterally. Absent: respiratory distress, wheezes, rales, rhonchi - Cardiovascular Cardiovascular Exam: Present: regular rate, normal rhythm, normal heart sounds. Absent: systolic murmur, diastolic murmur, rubs, gallop - GI/Abdominal GI/Abdominal exam: Present: soft, normal bowel sounds. Absent: distended, tenderness, guarding, rebound - Back Exam Back exam: Present: normal inspection - Neurological Exam Neurological exam: Present: alert, oriented X3 - Psychiatric Psychiatric exam: Present: normal affect, normal mood - Skin Skin exam: Present: warm, dry, intact, normal color. Absent: rash ED Course Vital Signs 12/02/20 11:38 Temperature 98.1 F Pulse Rate 74 Respiratory 20 Rate Blood Pressure 93/66 O2 Sat by Pulse 99 Oximetry ED Medical Decision Making - Lab Data Result diagrams: 12/02/20 11:51 12/02/20 11:51 Laboratory Results - last 24 hr 12/02/20 12/02/20 12/02/20 11:51 11:51 11:51 WBC 5.2 RBC 4.72 Hgb 13.3 Hct 40.3 MCV 85 MCH 28 MCHC 33 RDW 13.4 Plt Count 241 Lymph % (Auto) 30.8 [place] % (Auto) 10.0 H Eos % (Auto) 2.2 Baso % (Auto) 0.9 Lymph # (Auto) 1.6 [place] # (Auto) 0.5 Eos # (Auto) 0.1 Baso # (Auto) 0.0 Seg Neutrophils % 56.1 Seg Neutrophils # 2.9 Sodium 139 Potassium 3.7 Chloride 101.3 Carbon Dioxide 32 H Anion Gap 9 BUN 18 H Creatinine 0.9 Estimated GFR > 60 BUN/Creatinine Ratio 20 Glucose 98 Calcium 9.0 Total Bilirubin 0.30 AST 14 ALT 6 L Alkaline Phosphatase 89 Total Protein 7.6 Albumin 4.2 Albumin/Globulin Ratio 1.2 HCG, Qual Negative Urine Color Urine Turbidity Urine pH Ur Specific [place] Urine Protein Urine Glucose (UA) Urine Ketones Urine Blood Urine Nitrite Urine Bilirubin Urine Urobilinogen Ur Leukocyte Esterase Urine WBC (Auto) Urine RBC (Auto) U Epithel Cells (Auto) Urine Bacteria (Auto) Urine Mucus 12/02/20 Unknown WBC RBC Hgb Hct MCV MCH MCHC RDW Plt Count Lymph % (Auto) [place] % (Auto) Eos % (Auto) Baso % (Auto) Lymph # (Auto) [place] # (Auto) Eos # (Auto) Baso # (Auto) Seg Neutrophils % Seg Neutrophils # Sodium Potassium Chloride Carbon Dioxide Anion Gap BUN Creatinine Estimated GFR BUN/Creatinine Ratio Glucose Calcium Total Bilirubin AST ALT Alkaline Phosphatase Total Protein Albumin Albumin/Globulin Ratio HCG, Qual Urine Color Yellow Urine Turbidity Clear Urine pH 6.0 Ur Specific [place] 1.021 Urine Protein 30 mg/dl Urine Glucose (UA) Neg Urine Ketones Neg Urine Blood Lg Urine Nitrite Neg Urine Bilirubin Neg Urine Urobilinogen 4.0 Ur Leukocyte Esterase Tr Urine WBC (Auto) 9.0 H Urine RBC (Auto) 8.0 U Epithel Cells (Auto) 5.0 Urine Bacteria (Auto) 1+ Urine Mucus 3+ - Medical Decision Making 1. pelvic pain: suspect endometriosis vs uterine fibroids, patient has had several ED visits for pelvic pain since 2018, pain is not persistent to suspect PID, appendicitis, ovarian torsion 2. right hand injury: no evidence of acute fracture or disocation 3. vaginitis: rx: fluconazole, metronidazole Critical care attestation.: If time is entered above; I have spent that time in minutes in the direct care of this critically ill patient, excluding procedure time. ED Disposition Clinical Impression: Vaginitis, Pelvic pain, Hand injury Disposition: TO HOME OR SELFCARE Is pt being admited?: No Does the pt Need Aspirin: No Condition: Stable Instructions: Abdominal Pain (ED), Pelvic Pain, Female, [id number], Vaginitis, [id number] Prescriptions: Fluconazole [Diflucan TAB] 200 mg PO ONCE #1 tablet metroNIDAZOLE [Flagyl TAB] 500 mg PO Q12HR 7 Days #14 tab Referrals: SEDRICK PEDERSEN [Other] - 3-5 Days YOSSI TELLO MD [Staff Physician] - 3-5 Days MAISHA SHARIF MD [Staff Physician] - 3-5 Days
== END 2020-12-02 17:07 | disposition home or self-care (01) ==
LOC: ED 10:59
DX: S69.91XA Unspecified injury of right wrist, hand and finger(s), initial encounter (principal); N76.0 Acute vaginitis; F17.200 Nicotine dependence, unspecified, uncomplicated; Z98.51 Tubal ligation status; X58.XXXA Exposure to other specified factors, initial encounter; Y93.89 Activity, other specified; Y92.89 Other specified places as the place of occurrence of the external cause; Y99.8 Other external cause status
CPT/HCPCS: 36415; 80053; 81001; 84703; 85025; 87086; 99283